=== PATIENT | female | born 1965 | race Caucasian/White ===

== ENCOUNTER 2017-04-16 | Day surgery (SDC) | END 2017-04-16 11:47 | disposition home or self-care (01) ==

== ENCOUNTER 2018-09-28 07:58 | Day surgery (SDC) | payer OTHER ==
[~2018-09-28] VITALS: Ht 165.1 cm; Wt 68.1 kg
[~2018-09-28 07:58] MED LIST: ALBUIS INH; Bentyl20 MG PO; Calcium Ascorb500 MG PO; FAMO20 PO; Nexium40 MG PO
--- NOTE | 2018-09-28 10:35 | NUR ---
09/28/18 1035 GloverInocencia S PT. REALLY SLEEPY POST PROCEDURE. PT. SITTING UP TRYING TO MOVE IN BED BUT NOT OPENING HER EYES. PT FINALLY MORE AWAKE & OPENS EYES. PT. SHAKING/SHIVERING, PT. GIVEN A WARM BLANKET. WHEN PT. MORE AWAKE PT. VERBALIZES BEING COLD SO ANOTHER WARM BLANKET GIVEN. WHEN PT WOKE UP PT. VERBALIZES HAVING A "REALLY BAD" SORE THROAT RADIATING TO EARS. DR. NORRIS TALKING TO & PT. ABOUT THIS & INSTRUCTED THEM TO GET OTC SORE THROAT LOZENGES/MEDICATION FOR HER SORE THROAT. PT. INSTRUCTED SORE THROAT COULD LAST A DAY OR SO & IF BOTHERSOME SOFT FOODS OTHERWISE EAT & DRINK WHAT SHE WANTED. DR. NORRIS NOTIFIED THEM THAT HE DIALATED HER ESOPHAGUS SO COULD BE A LITTLE MORE SORE. PT. STATED "FEELS LIKE A CACTUS" IN HER THROAT.
== END 2018-09-28 10:25 | disposition home or self-care (01) ==
LOC: ORSCSDS 07:58
PROVIDERS: Internal Medicine Gastroenterology
PROC: 0DBN8ZX Excision of Sigmoid Colon, Via Natural or Artificial Opening Endoscopic, Diagnostic (ICD-10-PCS; principal; 2018-09-28 09:15)
PROC: 0D758ZZ Dilation of Esophagus, Via Natural or Artificial Opening Endoscopic (ICD-10-PCS; principal; 2018-09-28 09:15)
PROC: 0DBH8ZX Excision of Cecum, Via Natural or Artificial Opening Endoscopic, Diagnostic (ICD-10-PCS; principal; 2018-09-28 09:15)
PROC: 0DB68ZX Excision of Stomach, Via Natural or Artificial Opening Endoscopic, Diagnostic (ICD-10-PCS; principal; 2018-09-28 09:15)
DX: Z12.11 Encounter for screening for malignant neoplasm of colon (principal); Z83.71 Family history of colonic polyps; K21.0 Gastro-esophageal reflux disease with esophagitis; Z86.010 Personal history of colon polyps; D12.0 Benign neoplasm of cecum; K63.5 Polyp of colon; R13.10 Dysphagia, unspecified; K29.80 Duodenitis without bleeding; K57.30 Diverticulosis of large intestine without perforation or abscess without bleeding; K64.8 Other hemorrhoids; Z79.899 Other long term (current) drug therapy
CPT/HCPCS: 88305; 88342; J0330; J2405; J2704; J7120

== ENCOUNTER → 2019-04-25 | Outpatient (CLI) | payer OTHER | END | disposition home or self-care (01) | LOC: LAB 11:10 → LAB SHORT 11:10 | DX: R30.0 Dysuria (principal) | CPT/HCPCS: 87086 ==

== ENCOUNTER → 2020-06-11 | Outpatient (CLI) | payer OTHER | LOC: LAB SHORT 06:55 | DX: R19.7 Diarrhea, unspecified (principal); R35.0 Frequency of micturition | CPT/HCPCS: 87015; 87045; 87046; 87205; 87899 ==

== ENCOUNTER 2022-06-19 08:45 | Day surgery (SDC) | payer OTHER ==
[~2022-06-19 08:45] MED LIST changes: +GABA100; +MONT4
== END 2022-06-26 23:00 | disposition home or self-care (01) ==
LOC: MOI US 08:45
DX: D24.1 Benign neoplasm of right breast (principal)
CPT/HCPCS: 19285; 77065; A4648

== ENCOUNTER → 2022-12-29 | Outpatient (CLI) | payer OTHER ==
[~2022-12-29] MED LIST changes: +BENTYL PO; +CELE100 PO; -GABA100; +GABA100 PO; +MONT10T PO; -MONT4; +VITAMIN D310 MC4 PO
== END ==
LOC: LAB 12:00 → LAB SHORT 12:00
DX: J02.9 Acute pharyngitis, unspecified (principal)
CPT/HCPCS: 87081

== ENCOUNTER 2024-01-26 10:26 | Emergency (ER) | payer OTHER ==
[~2024-01-26] VITALS: Ht 167.6 cm; Wt 81.7 kg
[2024-01-26 12:15] LABS: BASOPHILS ABSOLUTE AUTO 0.13 K/mm3 (0.00-0.23); BASOPHILS PERCENT AUTO 2 % (0-2); EOSINOPHILS ABSOLUTE AUTO 0.41 K/mm3 (0.00-0.68); EOSINOPHILS PERCENT AUTO 5 % (0-6); Hematocrit 48.2 % (33.0-51.0); IMMATURE GRAN ABSOLUTE AUTO 0.02 K/mm3 (0.00-0.10); IMMATURE GRAN PERCENT AUTO 0 % (0-1); LYMPHOCYTES ABSOLUTE AUTO 2.88 K/mm3 (0.84-5.20); LYMPHOCYTES PERCENT AUTO 33 % (21-46); MONOCYTES ABSOLUTE AUTO 0.66 K/mm3 (0.16-1.47); MONOCYTES PERCENT AUTO 8 % (4-13); Mean Corpuscular HGB 28.3 pg (26.0-34.0); Mean Corpuscular HGB Conc 33.2 g/dL (31.5-36.5); Mean Corpuscular Volume 85 fL (80-100); Mean Platelet Volume 10.2 fL (9.1-12.4); NEUTROPHILS ABSOLUTE AUTO 4.58 K/mm3 (1.96-9.15); NEUTROPHILS PERCENT AUTO 53 % (41-73); Platelet Count 212 K/mm3 (150-400); RDW Coefficient Variation 12.5 % (11.7-14.2); RDW Standard Deviation 38.9 fL (35.1-46.3); Red Blood Cell Count 5.66 M/mm3 (3.80-5.20); White Blood Cell Count 8.68 K/mm3 (4.00-11.30)
[2024-01-26 12:47] LABS: Albumin, Blood 4.2 g/dL (3.4-5.0); Albumin/Globulin Ratio 1.1 (0.8-1.8); Bilirubin, Total 0.4 mg/dL (0.1-1.0); Bun/Creatinine Ratio 14.3 (12.0-20.0); Calcium, Blood 9.5 mg/dL (8.5-10.1); Creatinine, Blood 1.05 mg/dL (0.40-1.00); Globulin, Blood 3.8 g/dL (2.2-4.0); Potassium, Blood 4.4 mmol/L (3.5-5.5)
[2024-01-26 14:15] VITALS: BP 134/93
== END 2024-01-26 14:33 | disposition home or self-care (01) ==
LOC: ER 10:26
PROVIDERS: Physician Assistant
DX: R25.3 Fasciculation (principal); Z88.1 Allergy status to other antibiotic agents; Z88.5 Allergy status to narcotic agent
CPT/HCPCS: 70450; 80053; 85025; 99284-25